=== PATIENT | male | born 1990 | race Caucasian/White ===

== ENCOUNTER 2019-03-25 07:07 | Emergency (ER) | payer SELFPAY ==
[~2019-03-25] VITALS: Ht 182.9 cm; Wt 106.0 kg
[2019-03-25] MEDS ORDERED: PREDNISONE 20MG TABLET PO STA (07:31)
[2019-03-25] MEDS ORDERED: ALBUTEROL (0.083%) 2.5MG/3ML NEB HHN STA (07:31)
[2019-03-25] MEDS ORDERED: IPRATROPIUM BROMIDE (0.02%) 0.5MG/2.5ML NEB HHN STA (07:31)
[2019-03-25 08:09] VITALS: BP 132/78
== END 2019-03-25 09:51 | disposition home or self-care (01) ==
LOC: ER 07:07
DX: J45.901 Unspecified asthma with (acute) exacerbation (principal)
CPT/HCPCS: 94644; 99285; J7611; Z7610